=== PATIENT | female | born 1985 | race Caucasian/White ===

== ENCOUNTER → 2022-03-26 | Outpatient (CLI) | payer MEDICAID, SELFPAY ==
[2022-03-28 12:08] LABS: Anti-Centromere B Ab <0.2 AI (0.0-0.9); Anti-Chromatin 0.3 AI (0.0-0.9); Anti-Jo <0.2 AI (0.0-0.9); Anti-Scleroderma-70 AB <0.2 AI (0.0-0.9); RNP Ab <0.2 AI (0.0-0.9); SJOGREN'S Anti-SS-A test < 0.2 AI (0.0-0.9); SJOGREN'S Anti-SS-B test < 0.2 AI (0.0-0.9); Smith Ab <0.2 AI (0.0-0.9)
[2022-03-28 16:11] LABS: Anti-dsDNA Ab <1 IU/mL (0-9)
== END | disposition home or self-care (01) ==
LOC: BIMLAB 14:49
PROVIDERS: PCP Internal Medicine; Referring Provider Internal Medicine; Visit Provider Internal Medicine
DX: M25.50 Pain in unspecified joint (principal)
CPT/HCPCS: 36415; 86225; 86235